=== PATIENT | male | born 1975 | race Caucasian/White ===

== ENCOUNTER 2016-06-04 05:25 | Day surgery (SDC) | payer OTHER ==
[2016-06-03 09:58] VITALS: BMI 26.7
[~2016-06-04] VITALS: Ht 167.6 cm; Wt 74.0 kg
[2016-06-04] VITALS (19 sets, daily range): BP systolic 131–164; BP diastolic 68–90; PULSE 74–98; RESP 15–21; Ht 167.6 cm; Wt 74.0 kg
[2016-06-04] MEDS ORDERED: BUPIVACAINE 0.25%/EPI (SDV) 30 ML INJ ONE (07:04)
--- NOTE | 2016-06-04 07:33 | HPN ---
Date/Time of Note Date/Time of Note DATE: 06/04/16 TIME: 07:33 Interval H&P Admission Note Pt. seen H&P reviewed: No system changes RAMA ALEX MD Jun 04, 2016 07:33
[2016-06-04] MEDS ORDERED: HYDROmorphONE (0.2 MG/ML) 10ML SYG IV PRN ×3 (09:00)
[2016-06-04] MEDS ORDERED: hydrALAzine 20 MG INJ IV PRN (09:00)
[2016-06-04] MEDS ORDERED: METOCLOPRAMIDE 10 MG INJ IV PRN (09:00)
[2016-06-04] MEDS ORDERED: morphine 2 MG INJ IV PRN (09:00)
[2016-06-04] MEDS ORDERED: ONDANSETRON 4 MG INJ IV PRN ×2 (09:00)
[2016-06-04] MEDS ORDERED: OXYCODONE/ACETAMINOPHEN (5/325) TAB PO PRN ×2 (09:00)
[2016-06-04] MEDS ORDERED: LABETALOL HCL 20MG INJ IV PRN (09:00)
--- NOTE | 2016-06-04 09:29 | OPR ---
DATE OF OPERATION: 06/04/2016 PREOPERATIVE DIAGNOSIS: Gallstones without obstruction. OPERATION PERFORMED: Laparoscopic cholecystectomy. POSTOPERATIVE DIAGNOSIS: Gallstones without obstruction. SURGEON: Rama Membreno MD ANESTHESIA: General. ANESTHESIOLOGIST: Dr. Blount OPERATIVE REPORT: After satisfactory general anesthesia was achieved the abdomen was prepped and dr aped in the usual fashion. The abdomen was insufflated with carbon oxide through an umbilical Veres s needle with 15 mmHg pressure. The Veress needle was removed and the umbilical incision extended t o 5 mm, through which a 5-mm trocar was placed. A 5-mm, 0-degree lens was placed. Laparoscopy was unremarkable. Under direct visualization an 11-mm epigastric trocar was placed, as well as two 5-mm right lateral abdominal trocars. The dome of the gallbladder was grasped and retracted superiorly. Jerzy's pouch was retracted inferiorly. The hepatoduodenal ligament was carefully dissected. The cystic duct and the cystic artery were paralleling each other and were dissected between the gal lbladder and the well visualized jeremiah hepatis. The cystic duct was then triply hemoclipped and div ided high at the junction of the gallbladder and the cystic duct. The cystic artery was immediately posterior and was triply hemoclipped and divided. The gallbladder was then dissected from below. A peritoneal attachment to the gallbladder containing a blood vessel was divided over 2 clips. The gallbladder was then dissected from below using electrocautery dissection and placed fully intact in to an EndoCatch, removed by the epigastric route. Hemostasis of the liver bed was excellent and irr igant returned clear. The abdomen was then desufflated and the trocars were removed. The fascia of the epigastrium was closed with 2 sutures of 0 Vicryl. The skin punctures were infiltrated with 30 mL of 0.25% Marcaine with epinephrine and with the exception of the umbilicus were closed with stap les. Operative blood loss less was than 10 mL. Sponge and needle counts were reported as correct x 2. The patient tolerated the procedure well and without incident or complication. Dictated By: RAMA MENDENHALL/MAU Conf#: [id number] DID#: [id number] CC: Felix Bey MD;*EndCC*
== END 2016-06-04 11:00 | disposition home or self-care (01) ==
LOC: SDS 05:25
PROVIDERS: ATTEND Surgery
DX: K81.1 Chronic cholecystitis (principal)
CPT/HCPCS: 47562; 88304; J0360; Z7512; Z7610